=== PATIENT | female | born 1980 | race African-American/Black ===

== ENCOUNTER 2018-11-12 16:14 | Inpatient (IN) | payer SELFPAY ==
[2018-11-12] MEDS: LACTATED RINGER'S 1,000 ML IV ×2 (16:20→22:25)
[2018-11-12] MEDS ORDERED: MISOPROSTOL 200 MCG TAB PR ×2 (16:30→22:30)
[2018-11-12] MEDS ORDERED: METHYLERGONOVINE 0.2 MG INJ IM ×2 (16:30→22:30)
[2018-11-12] MEDS ORDERED: CARBOPROST 250 MCG INJ IM ×2 (16:30→22:30)
[2018-11-12] MEDS ORDERED: OXYTOCIN 30 UNITS/LR 500 ML IV ×3 (16:30→22:30)
[2018-11-12] MEDS ORDERED: morphine SULFATE/PF (10 MG/10 ML) INJ (16:42)
[2018-11-12] MEDS ORDERED: FENTAnyl 50 MCG/ML VIAL (16:42)
[2018-11-12] MEDS ORDERED: DEXAMETHASONE 4 MG/ML 1 ML INJ (16:48)
[2018-11-12] MEDS ORDERED: ONDANSETRON 4 MG INJ (16:48)
[2018-11-12 17:16] LABS: ADD MAN DIFF? NO
[2018-11-12 17:18] LABS: BASOPHILS % 0.3 % (0.0-2.0); EOSINOPHILS % 0.6 % (0.0-7.0); HEMATOCRIT 39.1 % (37.0-47.0); HEMOGLOBIN 12.4 g/dl (12.0-16.0); LYMPHOCYTES # 2.3 10^3/ul (0.8-2.9); LYMPHOCYTES % 37.7 % (15.0-51.0); MEAN CORPUSCULAR HEMOGLOBIN 27.9 pg (29.0-33.0); MEAN CORPUSCULAR HGB CONC 31.7 g/dl (32.0-37.0); MEAN CORPUSCULAR VOLUME 88.1 fl (82.0-101.0); MEAN PLATELET VOLUME 11.5 fl (7.4-10.4); MONOCYTE # 0.9 10^3/ul (0.3-0.9); MONOCYTES % 13.9 % (0.0-11.0); NEUTROPHIL # 2.9 10^3/ul (1.6-7.5); NEUTROPHILS % 47.2 % (39.0-77.0); PLATELET COUNT 280 10^3/UL (140-415); RED BLOOD COUNT 4.44 10^6/ul (4.20-5.40); RED CELL DISTRIBUTION WIDTH 14.1 % (11.5-14.5)
[2018-11-12 17:18] LABS: WHITE BLOOD COUNT 6.2 10^3/ul (4.8-10.8)
[2018-11-12 17:39] LABS: INR 0.93; PROTIME 12.6 Sec (11.9-14.9)
[2018-11-12 17:40] LABS: PARTIAL THROMBOPLASTIN TIME 25.3 Sec (23.0-35.0)
[2018-11-12 18:11] LABS: HEPATITIS B SURFACE ANTIGEN NEGATIVE (NEGATIVE)
[2018-11-12] MEDS ORDERED: ZOLPIDEM 5 MG TAB PO ×2 (20:00→22:30)
[2018-11-12] MEDS ORDERED: ONDANSETRON 4 MG INJ IV ×2 (20:00→22:30)
[2018-11-12] MEDS ORDERED: NALOXONE (0.4 MG/ML) INJ IV (20:00)
[2018-11-12] MEDS ORDERED: HYDROmorphONE 0.5 MG/0.5 ML SYG IV ×2 (20:00)
[2018-11-12] MEDS ORDERED: DIPHENHYDRAMINE 50 MG INJ IV ×2 (20:00→22:30)
[2018-11-12] MEDS: OXYTOCIN 30 UNITS/LR 500 ML IV (21:20)
[2018-11-12] MEDS: CEFAZOLIN 2 GM/50 ML (PMX) 50 ML IVPB (21:20)
[2018-11-13] MEDS: LACTATED RINGER'S 1,000 ML IV (01:03)
[2018-11-13] MEDS: IBUPROFEN 600 MG TAB PO ×5 (06:00→23:40)
[2018-11-13 07:18] LABS: ADD MAN DIFF? NO
[2018-11-13 07:19] LABS: BASOPHILS % 0.2 % (0.0-2.0); HEMATOCRIT 33.1 % (37.0-47.0); HEMOGLOBIN 10.8 g/dl (12.0-16.0); LYMPHOCYTES # 1.3 10^3/ul (0.8-2.9); LYMPHOCYTES % 9.9 % (15.0-51.0); MEAN CORPUSCULAR HEMOGLOBIN 28.5 pg (29.0-33.0); MEAN CORPUSCULAR HGB CONC 32.6 g/dl (32.0-37.0); MEAN CORPUSCULAR VOLUME 87.3 fl (82.0-101.0); MEAN PLATELET VOLUME 11.2 fl (7.4-10.4); MONOCYTE # 1.1 10^3/ul (0.3-0.9); MONOCYTES % 8.2 % (0.0-11.0); NEUTROPHIL # 10.5 10^3/ul (1.6-7.5); NEUTROPHILS % 81.4 % (39.0-77.0); PLATELET COUNT 244 10^3/UL (140-415); RED BLOOD COUNT 3.79 10^6/ul (4.20-5.40); RED CELL DISTRIBUTION WIDTH 14.1 % (11.5-14.5)
[2018-11-13 07:19] LABS: WHITE BLOOD COUNT 12.9 10^3/ul (4.8-10.8)
[2018-11-13] MEDS: SENNA/DOCUSATE NA (8.6MG/50MG) TAB PO ×2 (11:22→20:23)
[2018-11-13] MEDS: LANOLIN HPA 1 PKT TOP (11:22)
[2018-11-13 15:05] LABS: RAPID PLASMA REAGIN NONREACTIVE (NR)
[2018-11-13] MEDS: KETOROLAC 30 MG INJ IV (17:02)
[2018-11-14] MEDS: IBUPROFEN 600 MG TAB PO ×3 (05:41→17:52)
[2018-11-14] MEDS: SENNA/DOCUSATE NA (8.6MG/50MG) TAB PO ×2 (10:05→21:38)
[2018-11-14] MEDS: OXYCODONE/ACETAMINOPHEN (5/325) TAB PO ×2 (12:33→17:53)
[2018-11-15] MEDS: IBUPROFEN 600 MG TAB PO ×3 (00:02→11:47)
[2018-11-15] MEDS: OXYCODONE/ACETAMINOPHEN (5/325) TAB PO ×4 (00:11→16:03)
[2018-11-15] MEDS: SENNA/DOCUSATE NA (8.6MG/50MG) TAB PO (09:00)
[2018-11-15] MEDS: DIPHTH/TET/ACEL PERTUSS (ADULT) 0.5 ML VIAL IM* (09:42)
== END 2018-11-15 18:10 | disposition home or self-care (01) | DRG 788 ==
LOC: L-D 16:14 → PP1 22:28
PROVIDERS: Obstetrics & Gynecology
PROC: 10D00Z1 Extraction of Products of Conception, Low, Open Approach (ICD-10-PCS; principal; 2018-11-12)
DX: O34.211 Maternal care for low transverse scar from previous cesarean delivery (principal); O99.214 Obesity complicating childbirth; E66.9 Obesity, unspecified; O36.63X0 Maternal care for excessive fetal growth, third trimester, not applicable or unspecified; Z37.0 Single live birth; Z3A.39 39 weeks gestation of pregnancy
CPT/HCPCS: 85025; 85610; 85730; 86592; 86850; 86900; 86901; 87340; 99464